=== PATIENT | male | born 1975 | race Caucasian/White ===

== ENCOUNTER → 2017-02-11 | Outpatient (CLI) | payer BC ==
--- NOTE | 2017-02-11 17:13 | DIAGNOSTIC IMAGING REPORT ---
R TIBIA/FIBULA 2 VIEWS ROUTINE HISTORY: 41 years-old Male M25.561 Pain in joint involving right lower [id number] acute right leg pain COMPARISON: None available TECHNIQUE: 2 views of the right tibia and fibula FINDINGS: There is no acute fracture or dislocation identified. No significant degenerative changes, focal soft tissue swelling or opaque foreign body. IMPRESSION: No acute bony abnormality. The above report was generated using voice recognition software. It may contain grammatical, syntax or spelling errors. Electronically signed by: Avinash Pimentel M.D. 02/11/2017 5:11 PM Dictated Date/Time: 02/11/2017 5:10 PM
== END | disposition home or self-care (01) ==
LOC: C.RAD1850 16:45
PROVIDERS: ATTEND Internal Medicine
DX: M25.561 Pain in right knee (principal)